=== PATIENT | male | born 1970 | race Caucasian/White ===

== ENCOUNTER 2019-08-28 14:31 | Outpatient (RCR) | payer OTHER | END 2019-08-29 09:16 | disposition home or self-care (01) | LOC: WSOH 14:31 | DX: F43.10 Post-traumatic stress disorder, unspecified (principal); M25.512 Pain in left shoulder; Y99.0 Civilian activity done for income or pay ==

== ENCOUNTER 2020-05-08 11:17 | Outpatient (RCR) | payer OTHER | END 2020-05-12 12:54 | disposition home or self-care (01) | LOC: WSOH 11:17 | DX: S67.22XA Crushing injury of left hand, initial encounter (principal); Y99.0 Civilian activity done for income or pay ==